=== PATIENT | female | born 1945 | race Caucasian/White ===

== ENCOUNTER 2017-10-23 12:33 | Emergency (ER) | payer MEDICARE ==
[~2017-10-23] VITALS: Ht 152.4 cm; Wt 65.8 kg
[~2017-10-23 12:33] MED LIST: CRUTCH USE; HYDACE5 PO
== END 2017-10-23 14:47 | disposition home or self-care (01) ==
LOC: ER 12:33
DX: M54.2 Cervicalgia (principal); M25.512 Pain in left shoulder; M25.572 Pain in left ankle and joints of left foot; W01.0XXA Fall on same level from slipping, tripping and stumbling without subsequent striking against object, initial encounter
CPT/HCPCS: 70450; 72125; 99284